=== PATIENT | male | born 1975 | race Caucasian/White ===

== ENCOUNTER 2020-09-06 07:30 | Outpatient (RCR) | payer OTHER, SELFPAY ==
--- NOTE | 2020-07-26 15:30 | OT.OP.EVAL ---
Visit Care Team Role Provider Type Erin Gifford MD Attending Provider Non-Staff Primary Care Provider Referring Provider Specialty: Family Practice Address: [address] [place] [address], [facility] Email: Occupational Therapy Initial Evaluation OT Outpatient Adult Evaluation Start: 08/05/20 15:33 Freq: Status: Active Protocol: Document 07/26/20 15:30 AMS (Rec: 08/05/20 15:57 AMS [id number]) General Information Visit Start Time 08:30 Visit Stop Time 09:15 Total Visit Minutes 45 Plan of Care Dates 07/26/20-09/06/20 Insurance Information Prime Treatment Setting Outpatient Care Note Type Initial Evaluation Identification Confirmed Yes Goals Short Term Goals 1. Patient will be modified independent with execution of home exercise program utilizing provided written and visual instructions from therapist. 2. 0-65 degrees pain-free right wrist flexion. 3. 0-70 degrees pain-free right wrist extension. 4. Patient will report ability to engage in weight bearing activities without exacerbation of pain/ discomfort and/or observance/ awareness of proximal compensatory strategies (e.g., weight shifting to the left upper extremity/hand). Assessment/Plan Treatment Assessment Patient is a 45 year-old left hand dominant male referred to outpatient OT by his PCP status post fracture dislocation to the base of 3rd and 4th metacarpals of the right hand approximately 6 weeks ago. PMH: N/A. 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 Outpatient OT is recommended to address these areas in order to maximize patient's ability to successfully engage in meaningful activities. Comment 6 weeks Treatment Frequency Once a Week Therapeutic Contents Active Range of Motion,Client Education,Home Exercise Program,Manual Therapy, Education,Neuromuscular Re- Education,Self-Care,Stretching /Flexibility Activities, Therapeutic Activities, Therapeutic Exercises, Modalities,Sensory Re- education Modalities As Needed,As Prescribed Types of Modalities Contrast Bath,E-Stim,Ice Massage,T.E.N. Stimulation, TENS Placement/Application, Ultrasound Patient Instruction Home Exercise Program,Plan of Care,Questions/Concerns
--- NOTE | 2020-08-08 12:57 | OT.OP.TRT ---
Visit Care Team Role Provider Type Erin Gifford MD Attending Provider Non-Staff Primary Care Provider Referring Provider Specialty: Family Practice Address: [address] [place] [address], [facility] Email: Occupational Therapy Treatment Note OT Outpatient Treatment Note - Adult Start: 08/05/20 15:33 Freq: Status: Active Protocol: Document 08/08/20 12:32 AMS (Rec: 08/08/20 12:57 AMS [id number]) OT Outpatient Adult Treatment Note Session Time Visit Start Time 08:30 Visit Stop Time 09:05 Total Visit Minutes 35 Visit Information Plan of Care Dates 07/26/20-09/06/20 Setting Treatment Setting Outpatient Care Visit Type Note Type Treatment Note General Information General Information Patient is a 45 year-old left hand dominant male referred to outpatient OT by his PCP status post fracture dislocation to the base of 3rd and 4th metacarpals of the right hand approximately 6 weeks ago. - Subjective Identification Type Name Observations Patient is compliant w/ home exercise program. Patient/Caregiver Compliance with Home Excellent Exercise Program - Objective Objective Measurements Please refer to below for progress towards meeting established OT goals. Short Term Goals 1. Patient will be modified independent with execution of home exercise program utilizing provided written and visual instructions from therapist. 2. 0-65 degrees pain-free right wrist flexion. 3. 0-70 degrees pain-free right wrist extension. 4. Patient will report ability to engage in weight bearing activities without exacerbation of pain/ discomfort and/or observance/ awareness of proximal compensatory strategies (e.g., weight shifting to the left upper extremity/hand). - Exercises 4 Descriptor Dynamic stability. Yellow balance disk. 3 Descriptor Modified weight bearing. Wall towel slide. L <-> R weight shift. Top <-> Bottom. 2x10. Parallel bar. L <-> R weight shift. 2x10. Unilateral weight bearing. 2x10. Bilateral weight bearing between parallel bars. 1x10. Bilateral weight bearing reverse and pulling self to bar. 1x10. 2 Descriptor Pencil extension. 1x10. 1 Descriptor Tendon gliding exercises. 1x5. Returning to neutral between tendon glide. Hook. Duck. TT. Composite flexion. - Assessment Assessment of Improvement Patient is compliant with home exercise program. Able to progress weight bearing exercises; will progress to TT or floor weight bearing exercises as tolerated/as able . Home Exercise Program HEP: Tendon glides. Focus on Duck/TT/composite flexion. Pencil extension. Weight bearing wall/bar - or use of stair railing. All execises recommended for home were completed in treatment session . Patient denied any questions re: HEP. - Plan Therapy Recommendations Continue with Current Program, Advance per Rehabilitation Protocol
--- NOTE | 2020-09-06 08:25 | OT.OP.DC ---
Visit Care Team Role Provider Type Erin Gifford MD Attending Provider Non-Staff Primary Care Provider Referring Provider Address: [address] [place] [address], [id number] Email: OT Outpatient OT Outpatient Adult Evaluation Start: 08/05/20 15:33 Freq: Status: Active Protocol: Document 07/26/20 15:30 AMS (Rec: 08/05/20 15:57 AMS [id number]) General Information Session Time Visit Start Time 08:30 Visit Stop Time 09:15 Total Visit Minutes 45 Visit Information Plan of Care Dates 07/26/20-09/06/20 Insurance Information [facility] Setting Treatment Setting Outpatient Care Visit Type Note Type Initial Evaluation Identification Identification Confirmed Yes Goals Short Term Goals Short Term Goals 1. Patient will be modified independent with execution of home exercise program utilizing provided written and visual instructions from therapist. 2. 0-65 degrees pain-free right wrist flexion. 3. 0-70 degrees pain-free right wrist extension. 4. Patient will report ability to engage in weight bearing activities without exacerbation of pain/ discomfort and/or observance/ awareness of proximal compensatory strategies (e.g., weight shifting to the left upper extremity/hand). Assessment/Plan Assessment Treatment Assessment Patient is a 45 year-old left hand dominant male referred to outpatient OT by his PCP status post fracture dislocation to the base of 3rd and 4th metacarpals of the right hand approximately 6 weeks ago. PMH: N/A. 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 Outpatient OT is recommended to address these areas in order to maximize patient's ability to successfully engage in meaningful activities. Plan Comment 6 weeks Treatment Frequency Once a Week Therapeutic Contents Active Range of Motion,Client Education,Home Exercise Program,Manual Therapy, Education,Neuromuscular Re- Education,Self-Care,Stretching /Flexibility Activities, Therapeutic Activities, Therapeutic Exercises, Modalities,Sensory Re- education Modalities As Needed,As Prescribed Types of Modalities Contrast Bath,E-Stim,Ice Massage,T.E.N. Stimulation, TENS Placement/Application, Ultrasound Patient Instruction Home Exercise Program,Plan of Care,Questions/Concerns Sensory Assessment Sensory Profile2 Functional Wrist/Hand Scan Hand Side OT Outpatient Treatment Note - Adult Start: 08/05/20 15:33 Freq: Status: Active Protocol: Document 09/06/20 07:33 AMS (Rec: 09/06/20 08:25 AMS [id number]) OT Outpatient Adult Treatment Note Session Time Visit Start Time 07:30 Visit Stop Time 08:05 Total Visit Minutes 35 Visit Information Plan of Care Dates 07/26/20-09/06/20 Insurance Information Prime Setting Treatment Setting Outpatient Care Visit Type Note Type Treatment Note General Information General Information Patient is a 45 year-old left hand dominant male referred to outpatient OT by his PCP status post fracture dislocation to the base of 3rd and 4th metacarpals of the right hand approximately 6 weeks ago. - Subjective Identification Type Name Identification Reconciled With Medical Record Observations I think I am good per Bety. Patient/Caregiver Compliance with Home Excellent Exercise Program - Objective Objective Measurements Please refer to below for progress towards meeting established OT goals. Short Term Goals ALL GOALS MET 09/06/20 Patient is mod independent w/ execution of HEP utilizing provided written and visual instructions from therapist. * MET 09/06/20 0-65 degrees pain-free right wrist flexion. *MET 09/06/20. 0-65 degrees pain-free 0-70 degrees pain-free right wrist extension. *MET 09/06/20 . 0-70 degrees pain-free Patient is able to engage in weight bearing activities without exacerbation of pain/ discomfort and/or observance/ awareness of proximal compensatory strategies (e.g., weight shifting to the left upper extremity/hand). - Exercises 8 Descriptor Digit/wrist/dynamic grasp. 5.5# spherical ball w/ rebound trampoline. 4x10. 7 Descriptor Wrist strengthening/Digit strengthening. Wrist extension. TB #3. 1x15. Wrist flexion. TB #3. 1x15. Wrist UD. TB #3. 1x15. Wrist RD. TB #4. 1x15. Wrist/digit extension. TB #3. 1x15. TB wrapped around table. 6 Descriptor Wrist strengthening. 5# DB dowel wrist ext. x 5 cycles. 5# DB dowel wrist flex. x 5 cycles. 5 Descriptor Modified chair dips. Left <-> Right Weight Shift. 2x10. 4 Descriptor Dynamic stability. Left <-> Right. Square. 2x10. 3 Descriptor Modified weight bearing. Parallel bar. L <-> R weight shift. 2x10. Unilateral weight bearing. 2x10. Modified push- up. Bilateral weight bearing between parallel bars. 1x5 ( able to execute 5 sec hold). 2 Descriptor Pencil extension. 1x5, 2 cycles. 1 Descriptor Tendon gliding exercises. 1x5. Returning to neutral between tendon glide. Hook. Duck. TT. Composite flexion. - Assessment Assessment of Improvement Patient has met all OT goals; he has made progress relative to tolerance for weight bearing/and pain-free ROM. Education was provided re: compensatory strategies to monitor w/ execution of push- ups/day-to-day life. Patient has been able to return to floor push-ups; patient was able to execute 5+ without complaints of pain/discomfort. Patient is independent with home exercise program. Thus, recommend d/c to HEP at this time. Reviewed with Patient/Caregiver Home Exercise Program - Plan Therapy Recommendations Discharge from Occupational Therapy
== END 2020-09-09 13:11 ==
LOC: OT 07:30
PROVIDERS: PCP Family Medicine; Referring Provider Family Medicine; Visit Provider Family Medicine
DX: S62.302A Unspecified fracture of third metacarpal bone, right hand, initial encounter for closed fracture (principal); S62.304A Unspecified fracture of fourth metacarpal bone, right hand, initial encounter for closed fracture
CPT/HCPCS: 97110; 97165